=== PATIENT | female | born 1935 | race Caucasian/White ===

== ENCOUNTER → 2023-05-09 11:06 | Outpatient (CLI) | payer OTHER, SELFPAY ==
--- NOTE | ~2023-05-09 | XR_ITS ---
EXAM: XR shoulder RT min 2V DATE: 05/09/2023 11:33 HISTORY: M25.511 - Pain in right shoulder . COMPARISON: None available. FINDINGS: Normal mineralization. No fracture or dislocation. No lytic or blastic lesion. Moderate AC joint and glenohumeral joint degenerative change. Multiple loose bodies project over the inferior gl enohumeral joint recess. No erosion or periosteal change. Soft tissues within normal limits. IMPRESSION: Moderate polyarticular right shoulder osteoarthritis. Loose bodies in the glenohumeral kai int. Reviewed, dictated and finalized at location K. IMPRESSION: Moderate polyarticular right shoulder osteoarthritis. Loose bodies in the glenohumeral joint.
--- NOTE | ~2023-05-09 | XR_ITS ---
EXAMINATION: XR chest 2V DATE: 05/09/2023 11:33 INDICATION: Cough TECHNIQUE: PA and lateral views of the chest were obtained. COMPARISON: Chest radiograph dated 09/26/2017 FINDINGS: Small calcified nodule at the lateral left lower lung zone consistent with old granulomatous disease. The lungs remain otherwise clear with no focal airspace opacities, pulmonary edema, pleural effusion or pneumothorax. The cardiomediastinal silhouette is normal. Mild to moderate thoracic spondylosis w ith chronic mild anterior wedging of a couple mid thoracic vertebral bodies. IMPRESSION: 1. No acute cardiopulmonary disease. Reviewed, dictated and finalized at location B.
== END ==
PROVIDERS: PCP Physician Assistant; Visit Provider Physician Assistant
DX: R05.9 Cough, unspecified (principal); M19.011 Primary osteoarthritis, right shoulder; M24.011 Loose body in right shoulder
CPT/HCPCS: 71046; 73030

== ENCOUNTER → 2023-09-15 09:36 | Outpatient (CLI) | payer OTHER, SELFPAY ==
--- NOTE | ~2023-09-15 | XR_ITS ---
AP view of the pelvis and AP and lateral views of the left hip Clinical history: Pain Findings: No acute fracture or dislocation is seen. Osseous alignment is anatomic. Bilateral hip and SI joint spaces are preserved. Soft tissues are unremarkable. Impression: No significant abnormality is seen. Reviewed, dictated and finalized at [facility]. [employer] Impression: No significant abnormality is seen.
== END ==
PROVIDERS: PCP Family Medicine; Visit Provider Physician Assistant
DX: M25.552 Pain in left hip (principal)
CPT/HCPCS: 73502

== ENCOUNTER 2025-01-19 12:05 | Outpatient (CLI) | payer OTHER, SELFPAY ==
--- NOTE | ~2025-01-19 | XR_ITS ---
Right foot Technique: AP and lateral views were obtained. Clinical History: Status post fall Findings: There is acute, oblique, mildly displaced fracture of the distal fifth metatarsal shaft.. T here is severe degenerative change of the first MTP joint. Soft tissues are unremarkable. Impression: Acute fracture the distal fifth metatarsal shaft. 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 Reviewed, dictated and finalized at location . Impression: Acute fracture the distal fifth metatarsal shaft. 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
== END 2025-01-19 12:06 | disposition home or self-care (01) ==
PROVIDERS: PCP Family Medicine; Visit Provider Student in an Organized Health Care Education/Training Program
DX: S92.351A Displaced fracture of fifth metatarsal bone, right foot, initial encounter for closed fracture (principal); M19.071 Primary osteoarthritis, right ankle and foot; W19.XXXA Unspecified fall, initial encounter
CPT/HCPCS: 73620

== ENCOUNTER 2025-06-22 13:01 | Outpatient (CLI) | payer OTHER, SELFPAY ==
--- NOTE | ~2025-06-22 | DEXA_ITS ---
Bone Density Report Name: GIOVANI DAHL Age: 89 Sex: Female Ethnicity: White Date of : 1935 Indication: postmenopausal; screening for osteoporosis; height loss; prior fracture; Referring Provider: Benitez Major Study: Bone densitometry was performed. Exam Date: June 22, 2025 Accession number: [id number] Bone Density: Region BMD T-score Z-score Classification AP Spine(L1-L4) 0.855 -1.7 1.1 Osteopenia Femoral Neck (Left) 0.679 -1.5 1.0 Osteopenia Total Hip (Left) 0.732 -1.7 0.6 Osteopenia Femoral Neck (Right) 0.616 -2.1 0.4 Osteopenia Total Hip (Right) 0.780 -1.3 1.0 Osteopenia Total Hip Mean 0.756 -1.5 0.8 Osteopenia World Health Organization criteria for BMD impression classify patients as: Normal (T-score at or above -1.0), Osteopenia (T-score between -1.0 and -2.5), or Osteoporosis (T-score at or below -2.5). 10-year Fracture Risk(1): Major Osteoporotic Fracture 20% Hip Fracture 5.9% Reported Risk Factors: [place] (), Neck BMD=0.616, BMI=27.4, previous fracture (1) FRAX(R) Version 3.08. Fracture probability calculated for an untreated patient. Fracture probability may be lower if the patient has received treatment. Clinical Information Provided by Patient: Has had a low trauma fracture Has used the following medications: Vitamin D, Calcium Patient maximum height was 64 Menopause Age: 52 Does not regularly consume dairy products Onset of menses at age 14 Number of children 7 Impression: The patient has low bone mass, based on the Right Femoral Neck T-score. The patient has an estimated ten-year risk of hip fracture of 5.9% and an estimated ten-year risk of major fracture of 20%, based on the WHO FRAX algorithm. The patient has risk factors, including: previous fracture. Discussion: BONE DENSITY IS LOW AT ONE OR MORE SKELETAL SITES. THE PATIENT'S BMD AND CLINICAL RISK FACTORS CONTRIBUTE TO THIS PATIENT'S HIGH RISK OF FRACTURE. This patient's lowest T-score is low at one or more skeletal sites. It meets the World Health Organization's (WHO) criteria for ?low bone mass? (T-score between -1.0 and -2.5). The patient's 10-year risk of hip fracture and 10 year risk of a major osteoporotic fracture as calculated by FRAX exceeds the threshold where pharmacological therapy is recommended by the National Osteoporosis Foundation (NOF). However, all treatment decisions require clinical judgment and consideration of individual patient factors, including patient preferences, comorbidities, previous drug use, risk factors not captured in the FRAX model (e.g., frailty, falls, vitamin D deficiency, increased bone turnover, interval significant decline in bone density) and possible under or overestimation of fracture risk by FRAX. The patient should follow a healthful lifestyle (good nutrition with adequate calcium and vitamin D, and appropriate weight-bearing exercise). Follow-Up: Consider a repeat BMD and Vertebral Fracture Assessment (VFA) exam in 2 years or sooner if medically necessary, to reassess this patient's status. Reported by: PILY on 06/22/2025 1:29:00 PM. Reviewed, dictated and finalized at location A.
== END 2025-06-22 13:02 | disposition home or self-care (01) ==
PROVIDERS: PCP Family Medicine; Visit Provider Family Medicine
DX: Z78.0 Asymptomatic menopausal state (principal); M85.88 Other specified disorders of bone density and structure, other site; M85.852 Other specified disorders of bone density and structure, left thigh; M85.851 Other specified disorders of bone density and structure, right thigh
CPT/HCPCS: 77080